=== PATIENT | female | born 2000 | race Caucasian/White ===

== ENCOUNTER → 2023-05-31 12:50 | Outpatient (REF) | payer BC, SELFPAY | LOC: HWRAD 12:50 | PROVIDERS: ATTENDING PHYSICIAN Internal Medicine Endocrinology, Diabetes & Metabolism; FAMILY PHYSICIAN Family Medicine | DX: E28.8 Other ovarian dysfunction (principal) | CPT/HCPCS: 74170; Q9967 ==